=== PATIENT | female | born 1985 | race Caucasian/White ===

== ENCOUNTER 2018-02-17 11:27 | Emergency (ER) | payer OTHER ==
--- NOTE | 2018-02-17 13:08 | EDM.PDOC ---
ED HPI GENERAL MEDICAL PROBLEM - General Chief Complaint: Neuro Symptoms/Deficits Stated Complaint: BLURRED VISION, CONFUSION Time Seen by Provider: 02/17/18 12:05 Source of Information: Reports: Patient, Family History Limitations: Reports: No Limitations - History of Present Illness INITIAL COMMENTS - FREE TEXT/NARRATIVE: 32-year-old female with a history of migraines, developed blurred vision for about 10 minutes this morning followed by a period of confusion. She's had a persistent mild sensation which is abnormal on the left temporal area for the past week to 10 days. She also had a very significant illness earlier this year where she still trying to gain her strength back. No fevers or chills, no nausea or vomiting. She feels back to baseline at this time. She has not had a CT scan in over 7 years. Onset: Sudden Severity: Moderate Associated Symptoms: Reports: Confusion, Malaise, Weakness, Other (Blurred vision). Denies: Fever/Chills, Headaches, Nausea/Vomiting denies Pain Score (Numeric/FACES): 0 - Related Data Allergies Allergy/AdvReac Type Severity Reaction Status Date / Time Sulfa (Sulfonamide Allergy Rash Verified 02/17/18 11:43 Antibiotics) Home Meds: Home Meds NK [No Known Home Meds] 02/17/18 [History] Past Medical History Genitourinary History: Reports: UTI, Recurrent Other Genitourinary History: reflux Social & Family History - Tobacco Use Smoking Status *Q: Never Smoker ED ROS GENERAL - Review of Systems Review Of Systems: See Below Constitutional: Denies: Fever, Chills HEENT: Reports: Other Respiratory: Denies: Shortness of Breath Cardiovascular: Denies: Chest Pain GI/Abdominal: Denies: Abdominal Pain, Nausea, Vomiting Musculoskeletal: Reports: No Symptoms Skin: Reports: No Symptoms Psychiatric: Reports: No Symptoms ED EXAM, NEURO - Physical Exam Exam: See Below Exam Limited By: No Limitations General Appearance: Alert, No Apparent Distress Eye Exam: Bilateral Eye: Normal Inspection Neck: Normal Inspection, Supple. No: Carotid Bruit Respiratory/Chest: No Respiratory Distress, Lungs Clear Neurological: Alert, Normal Mood/Affect, No Motor/Sensory Deficits, Oriented x 3 , Other (Grasp strength is equal, Romberg is negative, no pronator drift) DTR: 2+: Patella (R), Patella (L) Extremities: Normal Inspection Psychiatric: Normal Affect, Normal Mood Skin Exam: Warm, Dry Course - Vital Signs Last Recorded V/S: Last Vital Signs Temp 97.1 F 02/17/18 11:52 Pulse 79 02/17/18 11:52 Resp 14 02/17/18 11:52 BP 129/78 02/17/18 11:52 Pulse Ox 97 02/17/18 11:52 - Orders/Labs/Meds Orders: Active Orders 24 hr Category Date Time Status Head wo Cont [CT] Stat Exams 02/17/18 12:15 Taken - Re-Assessments/Exams Free Text/Narrative Re-Assessment/Exam: 02/17/18 13:07 CT of the head was normal which is very reassuring for the patient. A copy was given, and she will follow-up when home unless she worsens and develops other concerns. 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 Consider rechecking went home if you still have concerns, or return sooner if worsening. - My Orders Last 24 Hours: My Active Orders 02/17/18 12:15 Head wo Cont [CT] Stat - Assessment/Plan Last 24 Hours: My Active Orders 02/17/18 12:15 Head wo Cont [CT] Stat
== END 2018-02-17 13:29 | disposition home or self-care (01) ==
LOC: JP.ED 11:27
DX: G43.109 Migraine with aura, not intractable, without status migrainosus (principal); Z88.2 Allergy status to sulfonamides
CPT/HCPCS: 70450; 99284-25